=== PATIENT | female | born 1935 | race Caucasian/White ===

== ENCOUNTER 2018-12-27 15:15 | Emergency (ER) | payer MEDICARE, OTHER, SELFPAY ==
[2018-12-27 15:21] VITALS: BP 180/76; PULSE 71; RESP 18; TEMP 36.9; O2SAT 99; BMI 25.7
--- NOTE | 2018-12-27 15:34 | DI.RAD.S_ITS ---
PROCEDURE: XR WRIST RT MIN 3V INDICATIONS: slipped and fell, now with deformity right wrist. TECHNIQUE: 3 views of the wrist were acquired. COMPARISON: None. FINDINGS: Bones: No dislocations. No suspicious bony lesions. There is a transverse fracture involving the distal radius is intra-articular, impacted and dorsally angulated. Scaphoid view: Not obtained at the scaphoid visualized appears normal Soft tissues: No suspicious soft tissue calcifications. IMPRESSION: Impacted dorsally angulated distal radius fracture, with no additional definite injury elsewhere over the wrist. Dictated by: Lokesh Severino M.D. on 12/27/2018 at 15:52 Approved by: Lokesh Severino M.D. on 12/27/2018 at 15:55
--- NOTE | 2018-12-27 17:57 | DI.CT.S_ITS ---
PROCEDURE: CT UE RT WO CON INDICATIONS: wrist fx TECHNIQUE: Noncontrast 1 mm axial sections acquired through the distal forearm and carpal bones, with coronal and sagittal reformats. COMPARISON: None. FINDINGS: Image quality: Excellent. Bones: There is a severely comminuted, impacted, displaced distal radial fracture extending to the articular surface. There is associated distal radial ulnar dislocation. The carpal bones are intact. Soft tissues: Associated soft tissue swelling. IMPRESSION: Severely comminuted, impacted, displaced distal radial fracture extending to the articular surface with distal radial ulnar dislocation. Dictated by: Roosevelt Moore M.D. on 12/27/2018 at 18:30 Approved by: Roosevelt Moore M.D. on 12/27/2018 at 18:32
[2018-12-27 18:30] VITALS: BP 191/65; PULSE 67; O2SAT 99
--- NOTE | 2018-12-27 18:52 | ED.UPPEXIN ---
HPI - Extremity Injury (Upper) General Chief Complaint: Extremity Injury, Upper Stated Complaint: RT ARM INJURY Time Seen by Provider: 12/27/18 16:51 Source: patient and family Mode of arrival: ambulatory Limitations: no limitations History of Present Illness HPI narrative: Patient comes to the emergency department after slipping on a gravel on top of cement and falling on her outstretched right hand to the ground. Patient states she feels as though she bruised her hip and possibly her elbow, but it is mainly her right wrist that is bothering her. Patient states she was immediately sure that she broke her wrist, but was on her way to eat lunch with her siblings and did not want to miss lunch, so she took a couple of Aleve and went about her day. She states the injury happened several hours ago, and now, her wrist is swollen and somewhat sore. Patient states she takes a baby aspirin, but otherwise no anticoagulation. Patient denies hitting her head or losing consciousness. No rib injuries. No spinal pain at any level. No difficulty breathing or chest pain. No abdominal pain. Patient has been ambulatory since the fall without difficulty. No prior history of injury to the wrist. No other complaints at this time. No numbness or tingling in the right hand. Patient is right-hand dominant. Related Data Home Medications Medication Instructions Recorded Confirmed Calcium 500 + D 1 tab PO DAILY 12/27/18 12/27/18 aspirin 81 mg PO DAILY 12/27/18 12/27/18 atorvastatin 5 mg PO DAILY 12/27/18 12/27/18 fluorouracil 1 applic TOPICAL [id number] 12/27/18 12/27/18 olmesartan 20 mg PO DAILY 12/27/18 12/27/18 Previous Rx's Medication Instructions Recorded hydrocodone-acetaminophen 1 tab PO Q4H PRN #20 tab 12/27/18 Allergies Allergy/AdvReac Type Severity Reaction Status Date / Time No Known Drug Allergies Allergy Verified 12/27/18 15:35 Review of Systems Constitutional Denies chills, Denies fever(s), Denies lethargy and Denies weakness Eyes Denies change in vision, Denies eye discharge, Denies irritation and Denies loss of vision ENT Ears, Nose, Mouth, and Throat: Denies change in voice, Denies neck pain and Denies sore throat Cardiovascular Denies chest pain, Denies irregular heart rhythm, Denies lightheadedness, Denies palpitations, Denies dyspnea, Denies dyspnea on exertion and Denies orthopnea Respiratory Denies cough, Denies dyspnea, Denies dyspnea on exertion and Denies wheezing Gastrointestinal Gastrointestinal: Denies abdominal pain, Denies change in bowel habits, Denies diarrhea, Denies nausea and Denies vomiting Genitourinary Denies hematuria, Denies flank pain, Denies urinary incontinence and Denies urinary urgency Musculoskeletal Denies neck pain Comments: Right wrist pain and swelling Integumentary/Breasts Denies pruritus, Denies erythema, Denies rash and Denies wounds Neurologic Denies confusion, Denies loss of vision and Denies weakness Psychiatric Denies anxiety, Denies confusion, Denies depression, Denies homicidal ideation and Denies suicidal ideation Endocrine Denies palpitations Hematologic/Lymphatic Denies easy bruising Allergic/Immunologic Denies wheezing [facility] Medical History Lung cancer (Acute) Colon cancer (Acute) Hyperlipidemia (Acute) Surgical History H/O pneumonectomy (Acute) Social History Smoking Status: Former smoker Social History Smoking Status: Former smoker Exam Initial Vital Signs Initial Vital Signs: Vital Signs Temperature 98.5 F 12/27/18 15:21 Pulse Rate 71 12/27/18 15:21 Respiratory Rate 18 12/27/18 15:21 Blood Pressure 180/76 H 12/27/18 15:21 Pulse Oximetry 99 12/27/18 15:21 Const General: cooperative and well developed Nutritional Appearance: well nourished Orientation: alert, awake, oriented x3 and not confused [facility] Head: normocephalic and atraumatic Ears: external ears normal Nose: external nose normal and No nasal discharge Face and sinus: face symmetric and No dry mucous membranes Mouth: oral mucosae normal and moist mucous membranes Teeth and gingiva: dentition normal Eyes General: appearance normal, both eyes and all related structures Eyelids: eyelids normal Conjunctivae: conjunctivae normal Sclera: sclerae normal Pupils: PERRL EOM: EOM intact bilaterally Neck Neck: normal visual inspection, trachea midline, No lymphadenopathy, No midline deformity and No JVD Lymphatic: No lymphedema Chest Chest: normal inspection of the chest Other: No rib tenderness or step-off. Resp Effort & Inspection: normal respiratory effort, able to speak in complete sentences, no respiratory distress and no use of accessory muscles Auscultation: clear to auscultation bilaterally, no rales, no rhonchi and no wheezes Cardio Rate: regular rate Rhythm: regular rhythm Heart Sounds: no click, no gallops, no murmurs and no rubs Pulses: normal peripheral pulses GI Inspection: non-distended Palpation: soft, no hepatosplenomegaly, No guarding, No pulsatile mass and No tender Auscultation: normal bowel sounds Back/Spine/Pelvis Back: No CVA tenderness Cervical Spine: cervical ROM normal and No pain with cervical ROM Thoracic/Lumbar Spine: thoracic and lumbar spine normal to inspection Other: No tenderness or step-off any level of the spine. No pelvic bone tenderness or instability with pressure. Skin General: no rashes or lesions noted, No jaundice and No petechiae Neuro General: alert, oriented x3, gait normal and no focal motor deficits Speech: speech normal Extrem Other: Patient has tenderness, deformity, and swelling of her right wrist. Moderate contusion noted as well. Patient has full range of motion of her right elbow and shoulder. No point tenderness over her shoulder or elbow. No point tenderness over the humerus or proximal forearm. Patient is able to move her right fingers without difficulty. Sensation is intact. Radial pulse intact. Psych Appearance: well kempt Mental Status: mental status grossly normal Attitude: cooperative Thought Content: normal and suicidality Judgment: judgment good Procedures Orthopedic Splinting/Casting Injury #1: Side: right Upper Extremity Injury Location: wrist Upper Extremity Immobilizer: sugar tong splint Post splinting neuro exam: intact Post splinting vascular exam: intact Placed by: Nursing (Under my direct supervision.) Course Course Narrative: Patient was sent for an x-ray series of her right wrist, which did reveal a comminuted, impacted, distal radius fracture. Patient declined analgesia in the emergency department. I spoke with Dr. Hollis, who was on-call for Orthopedics, and she requested a CT scan of the right wrist, and stated that her clinic would give the patient a call to set up follow-up, most likely for tomorrow. The plan most likely will be for surgical repair, and I have discussed this with the patient. I have informed the patient that the Orthopedic Clinic will be calling her. Patient has been placed in a sugar-tong splint, and we have discussed symptomatic management at home. We have also discussed the usual indications for return to the emergency department. Orders Ordered: ED Orders 12/27/18 15:34 XR wrist RT min 3V Stat 12/27/18 17:57 CT UE RT wo con Stat Vital Signs - 8 hr 12/27/18 15:21 12/27/18 18:30 Temperature 98.5 F Pulse Rate 71 67 Respiratory Rate 18 Blood Pressure 180/76 H Blood Pressure [Left Arm] 191/65 H Pulse Oximetry 99 99 MDM - Extremity Injury (Upper) Medical Records Attestation: I reviewed the patient's medical records. Imaging Data Wrist x-ray: Radiologist's impression: PROCEDURE: XR WRIST RT MIN 3V INDICATIONS: slipped and fell, now with deformity right wrist. TECHNIQUE: 3 views of the wrist were acquired. COMPARISON: None. FINDINGS: Bones: No dislocations. No suspicious bony lesions. There is a transverse fracture involving the distal radius is intra-articular, impacted and dorsally angulated. Scaphoid view: Not obtained at the scaphoid visualized appears normal Soft tissues: No suspicious soft tissue calcifications. IMPRESSION: Impacted dorsally angulated distal radius fracture, with no additional definite injury elsewhere over the wrist. Dictated by: Lokesh Severino M.D. on 12/27/2018 at 15:52 Approved by: Lokesh Severino M.D. on 12/27/2018 at 15:[address]: Radiologist's impression: [place] [address] CT Scan Report Signed Patient: Nely Gomes [facility]#: [id number] : [id number]:[id number] Age/Sex: 83 / FDate of Service: 12/27/18 Loc: ED Accession Number: [id number] Procedure: CT UE RT wo con Ordering Provider: Camelia Jean Baptiste MD PROCEDURE: CT UE RT WO CON INDICATIONS: wrist fx TECHNIQUE: Noncontrast 1 mm axial sections acquired through the distal forearm and carpal bones, with coronal and sagittal reformats. COMPARISON: None. FINDINGS: Image quality: Excellent. Bones: There is a severely comminuted, impacted, displaced distal radial fracture extending to the articular surface. There is associated distal radial ulnar dislocation. The carpal bones are intact. Soft tissues: Associated soft tissue swelling. IMPRESSION: Severely comminuted, impacted, displaced distal radial fracture extending to the articular surface with distal radial ulnar dislocation. Dictated by: Roosevelt Moore M.D. on 12/27/2018 at 18:30 Approved by: Roosevelt Moore M.D. on 12/27/2018 at 18:32 Discharge Plan Departure Patient Disposition: Home Clinical Impression: Fracture of wrist Qualifiers: Encounter type: initial encounter Fracture type: closed Laterality: right Qualified Code(s): S62.101A - Fracture of unspecified carpal bone, right wrist, initial encounter for closed fracture Instructions: DI for Distal Radius Fracture Activity Restrictions/Additional Instructions: Your x-ray showed a fracture of the larger of your 2 forearm bones right at the wrist. Your case has been discussed with Dr. Hollis of Orthopedics, who would like to see you in the clinic as soon as possible. She will have her staff call you, most likely tomorrow, for an appointment. She anticipates that you will need a surgical repair of your fracture. You have been placed in a splint which should stay on until you see the orthopedic surgeon. Prescriptions: New hydrocodone-acetaminophen 5-325 mg tablet 1 tab PO Q4H PRN (Reason: pain) Qty: 20 RF: 0 No Action atorvastatin 10 mg tablet 5 mg PO DAILY RF: 0 fluorouracil 5 % cream 1 applic topical [id number] RF: 0 olmesartan 20 mg tablet 20 mg PO DAILY RF: 0 aspirin 81 mg Tablet,Delayed Release (Dr/Ec) 81 mg PO DAILY RF: 0 Calcium 500 + D 1 tab PO DAILY RF: 0 Referrals: Rosa Hollis MD [Physician] -
[2018-12-27 19:14] VITALS: BP 165/88; PULSE 85; RESP 16; TEMP 36.3; O2SAT 98
== END 2018-12-27 19:17 | disposition home or self-care (01) ==
PROVIDERS: Emergency Provider Emergency Medicine
DX: S62.101A Fracture of unspecified carpal bone, right wrist, initial encounter for closed fracture (principal); W01.0XXA Fall on same level from slipping, tripping and stumbling without subsequent striking against object, initial encounter
CPT/HCPCS: 29105; 73110; 73200; 99282; 99284